=== PATIENT | female | born 1935 | race Caucasian/White ===

== ENCOUNTER 2022-07-29 14:16 | Emergency (ER) | payer MEDICARE, SELFPAY ==
[2022-07-29 14:33] VITALS: BP 126/68; PULSE 71; RESP 16; TEMP 35.9; O2SAT 100
--- NOTE | 2022-07-29 14:34 | ED.FEMALEGU ---
HPI - Female Genitourinary General Chief complaint: Abdominal Pain Stated complaint: sever right side flank pain nausea Time Seen by Provider: 07/29/22 14:34 Source: patient and RN notes reviewed History of Present Illness HPI Narrative: patient is an 87-year-old female who presents to Urgent Care with her daughter with complaints of right flank pain, nausea and dry heaves. Patient states she woke up out of her sleep at 7:20 a.m. with the severe pain and has taken both oxycodone and Tylenol without any relief. Patient states she has a history of frequent UTIs with the last 1 being in April. Denies any urgency, frequency, blood in the urine. Patient denies any history of kidney stones. Denies any fever. No other acute complaints. Patient is in obvious distress / pain. Patient aware of the plan of care. Some parts of this dictation were generated by voice recognition software and may contain typographical and/or grammatical inaccuracies. Related Data Home Medications Medication Instructions Recorded Confirmed atenolol 50 mg tablet mg 07/29/22 citalopram 10 mg tablet mg 07/29/22 oxycodone 5 mg tablet mg 07/29/22 pantoprazole 40 mg tablet,delayed mg PO 07/29/22 release trimethoprim 100 mg tablet mg 07/29/22 Allergies Allergy/AdvReac Type Severity Reaction Status Date / Time cefaclor [From [facility]] Allergy Unknown Verified 07/29/22 14:31 Review of Systems Review of Systems: CONSTITUTIONAL: Denies fever, chills, or sweats. EYES: Denies visual changes, redness, or discharge. ENT: Denies rhinorrhea, congestion, sore throat, or otalgia. CARDIOVASCULAR: Denies chest pain, palpitations, or edema. RESPIRATORY: Denies cough or dyspnea. GASTROINTESTINAL: reports of suprapubic pain and nausea GENITOURINARY: Denies dysuria or hematuria. Reports of severe right-sided flank discomfort to the right abdomen SKIN: Denies rash or itching. MUSCULOSKELETAL: Denies back pain, joint pain, or myalgia. NEUROLOGIC: Denies headache, numbness, or weakness. All other systems reviewed are negative, except as documented in HPI. PMFSH Comments At the time of my signature, I reviewed and agree with the nursing past medical, surgical, social, and family history. There is no relevant family history pertinent to the patient complaint. Exam Narrative: GENERAL: This is a well-nourished, well-developed patient. In obvious distress/discomfort HEAD: normocephalic, atraumatic. EYES: PERRL. Sclera clear/white. Vision is grossly intact. EARS: External ears normal NOSE: External nose normal with no obvious nasal discharge, nares without redness, no rhinorrhea. THROAT: Mucous membranes moist NECK: Neck supple SKIN: warm, intact with no suspicious lesions or rash, good texture and turgor. NEURO: awake, alert, and oriented to person, place and time. There were no obvious focal neurologic abnormalities. EXTREMITIES: No clubbing, cyanosis, or edema. BACK: severe right CVA tenderness Course Course Level of Care: Express Care Visit Vital Signs Vital signs: Vital Signs Temperature 96.6 F L 07/29/22 14:33 Pulse Rate 71 07/29/22 14:33 Respiratory Rate 16 07/29/22 14:33 Blood Pressure 126/68 07/29/22 14:33 Pulse Oximetry 100 07/29/22 14:33 Oxygen Delivery Room Air 07/29/22 14:33 Temperature 96.6 F L 07/29/22 14:33 Pulse Rate 71 07/29/22 14:33 Respiratory Rate 16 07/29/22 14:33 Blood Pressure 126/68 07/29/22 14:33 Pulse Oximetry 100 07/29/22 14:33 Oxygen Delivery Room Air 07/29/22 14:33 reviewed MDM - Female Genitourinary MDM Narrative Medical decision making narrative: reviewed urinalysis with the patient/daughter. Aware that urine shows trace bacteria and blood. Due to obvious discomfort and pain -advised ER evaluation. Patient states that she will go to the emergency room but is undecided on which 1 at this time. Patient will sign out AMA. Differential Diagnosis Differential di
== END 2022-07-29 15:11 | disposition left against medical advice (07) ==
PROVIDERS: Emergency Provider Nurse Practitioner Family; PCP Internal Medicine Geriatric Medicine
DX: R10.9 Unspecified abdominal pain (principal); I10 Essential (primary) hypertension
CPT/HCPCS: 81003; 99212; G0463